=== PATIENT | female | born 1945 | race Caucasian/White ===

== ENCOUNTER 2016-04-12 10:44 | Day surgery (SDC) | payer MEDICARE ==
[2016-04-07 13:17] VITALS: BMI 22.9
[~2016-04-12 10:44] MED LIST: DEXAMETHASONE SOD PHOSPHATE 10 MG/ML 1 ML VIAL IV ONE; HYDROmorphone 1 MG/ML 1 ML SYRINGE IVP PRN; LACTATED RINGERS 1,000 ML IV SCH; ONDANSETRON 4 MG/2 ML VIAL IVP ONE
[2016-04-12] MEDS ORDERED: LIDOCAINE 1% 20 ML VIAL (10MG/ML) FOR IV START SQ ONE (11:50)
[2016-04-12 11:57] VITALS: RESP 16; TEMP 98.3
[2016-04-12] MEDS: CYCLOPENTOLATE 1% OPHTH SOLN 2 ML BTL OP ONE ×3 (11:57→12:17)
[2016-04-12] MEDS: FLURBIPROFEN 0.03% OPHTH DROPS 2.5 ML BTL OP ONE ×3 (12:01→12:18)
[2016-04-12] MEDS: PHENYLEPHRINE 10% OPHTH DROPS 5 ML BTL OP ONE ×3 (12:06→12:21)
[2016-04-12] MEDS ORDERED: fentaNYL (PF) 50 MCG/ML 2 ML AMP ONE (12:41)
[2016-04-12] MEDS ORDERED: PROPOFOL 10 MG/ML 20 ML VIAL IV ONE (12:41)
[2016-04-12] MEDS ORDERED: MIDAZOLAM 2 MG/2 ML VIAL ONE (12:41)
[2016-04-12] MEDS ORDERED: BALANCED SALT IRRIG SOLN COMB2 15 ML IRRIG.SOLN INTRAOCULA ONE (12:47)
[2016-04-12] MEDS ORDERED: HYALURONATE SODIUM INTRAOCULAR 1 EACH SYRINGE (10MG/ML) INTRAOCULA ONE (12:47)
[2016-04-12] MEDS ORDERED: EPINEPHrine (PF) 0.5 ML in BALANCED SALT IRRIG SOLN COMB2 500 ML IRRIGATION ONE (12:47)
--- NOTE | 2016-04-12 13:02 | P.OP ---
Date of Procedure: 04/12/16 Procedure(s) Performed: PREOPERATIVE DIAGNOSIS: Cataract, left eye eye. POSTOPERATIVE DIAGNOSIS: Cataract, left eye. OPERATION: Phacoemulsification cataract, left eye. DESCRIPTION OF PROCEDURE: The patient was taken to the preoperative holding area. Intravenous Propofol was given so as to bring about adequate sedation. The following mixture was given for local anesthesia: 5 mL of 2% lidocaine, 5 mL of 0.75% Marcaine, and 1 mL of Wydase. Approximately 4 mL was injected in the retrobulbar space of the surgical eye. Additional 1 mL was then directed to the temporal area of the surgical eye. This was performed to allow adequate neurological block of the facial muscles. The patient was revived and then taken into the operative room. The patient was prepped and draped in the usual sterile manner for the operative eye. A lid speculum was put into position. The conjunctiva was resected back from the limbus in the 12 o'clock position. Bleeding was controlled with electrocautery. A #69 blade was then used and a half-thickness scleral incision approximately 1-mm posterior to the limbus was made on bare sclera. This was shelved in the clear cornea using a crescent knife. Next a 15-degree blade was used to make a stab incision at the 3 o' clock position at the corneolimbal interface. Keratome blade was then used and the superior wound was extended into the anterior chamber. Viscoelastic was injected into the anterior chamber and to maintain its form. Next, a cystotome was used and a continuous anterior capsulotomy was made without difficulty. Hydrodissection using a blunt cannula and BSS was performed. Phaco probe was then employed and a groove extending from 12 to 6 o'clock in the lens was created. A Ricky wand was used through the stab incision so as to perform a divide and conquer technique. Next an irrigation aspiration probe was utilized and any residual cortex was removed from the eye. Again, viscoelastic was injected into the anterior chamber. An Ze posterior chamber lens implant was placed in the cartridge and injected into the anterior chamber without difficulty. The Sinskey hook was utilized to spin the lens into position and this was again performed without any difficulty. The irrigation and aspiration probe was again employed and any residual viscoelastic was removed from the eye. Then BSS was injected into the limbal stab incision and the anterior chamber re-inflated. The conjunctiva was reapproximated using electrocautery. One drop of 0.25% Timoptic was placed over the corneal along with TobraDex ophthalmic ointment. Two sterile patches and a Sultana eye shield were taped into position. The patient was transported to the recovery room in stable condition. Pathology: none sent Condition: stable Disposition: same day
[2016-04-12 13:32] VITALS: BP 115/58; PULSE 77
[2016-04-12] MEDS ORDERED: GENTAMICIN/PREDNISOL AC OPHTH OINT 3.5GM OPHTHALMIC ONE (23:00)
[2016-04-12] MEDS ORDERED: BUPIVACAINE (PF) 0.75% 5 ML, LIDOCAINE 4% (PF) 5 ML, HYALURONIDASE, HUMAN RECOMB 150 UNIT MISCELLANE ONE ×3 (23:00)
[2016-04-12] MEDS ORDERED: TIMOLOL 0.5% OPHTH SOLN (PF) 0.2 ML DROPERETTE OP ONE (23:00)
== END 2016-04-12 13:44 | disposition home or self-care (01) ==
LOC: OR 10:44
PROVIDERS: ATTEND Ophthalmology
DX: H26.9 Unspecified cataract (principal); E07.9 Disorder of thyroid, unspecified; K21.9 Gastro-esophageal reflux disease without esophagitis; B19.20 Unspecified viral hepatitis C without hepatic coma; Z79.899 Other long term (current) drug therapy; Z88.5 Allergy status to narcotic agent; Z88.2 Allergy status to sulfonamides
CPT/HCPCS: 66984; V2632; J2001; J2250; J3470; J0171; J3010; J2704; 99152; 99153

== ENCOUNTER 2016-06-07 10:17 | Day surgery (SDC) | payer MEDICARE ==
[2016-06-01 16:01] VITALS: BMI 24.4
[~2016-06-07 10:17] MED LIST changes: -DEXAMETHASONE SOD PHOSPHATE 10 MG/ML 1 ML VIAL IV ONE; -HYDROmorphone 1 MG/ML 1 ML SYRINGE IVP PRN; -ONDANSETRON 4 MG/2 ML VIAL IVP ONE
[2016-06-07] MEDS: CYCLOPENTOLATE 1% OPHTH SOLN 2 ML BTL OP ONE ×3 (10:47→11:05)
[2016-06-07 10:49] VITALS: RESP 16; TEMP 97.7
[2016-06-07] MEDS: FLURBIPROFEN 0.03% OPHTH DROPS 2.5 ML BTL OP ONE ×3 (10:49→11:07)
[2016-06-07] MEDS: PHENYLEPHRINE 10% OPHTH DROPS 5 ML BTL OP ONE ×2 (10:51→11:03)
[2016-06-07] MEDS ORDERED: LIDOCAINE 1% 20 ML VIAL (10MG/ML) FOR IV START INTRADERMA ONE (11:06)
[2016-06-07] MEDS ORDERED: HYALURONATE SODIUM INTRAOCULAR 1 EACH SYRINGE (10MG/ML) INTRAOCULA ONE (11:31)
[2016-06-07] MEDS ORDERED: BALANCED SALT IRRIG SOLN COMB2 15 ML IRRIG.SOLN INTRAOCULA ONE (11:31)
[2016-06-07] MEDS ORDERED: PROPOFOL 10 MG/ML 20 ML VIAL IV ONE (11:33)
[2016-06-07] MEDS ORDERED: EPINEPHrine (PF) 0.5 ML in BALANCED SALT IRRIG SOLN COMB2 500 ML IRRIGATION ONE (11:45)
--- NOTE | 2016-06-07 11:58 | P.OP ---
Date of Procedure: 06/07/16 Procedure(s) Performed: PREOPERATIVE DIAGNOSIS: Cataract, right eye. POSTOPERATIVE DIAGNOSIS: Cataract, right eye. OPERATION: Phacoemulsification cataract, right eye. DESCRIPTION OF PROCEDURE: The patient was taken to the preoperative holding area. Intravenous Propofol was given so as to bring about adequate sedation. The following mixture was given for local anesthesia: 5 mL of 2% lidocaine, 5 mL of 0.75% Marcaine, and 1 mL of Wydase. Approximately 4 mL was injected in the retrobulbar space of the surgical eye. Additional 1 mL was then directed to the temporal area of the surgical eye. This was performed to allow adequate neurological block of the facial muscles. The patient was revived and then taken into the operative room. The patient was prepped and draped in the usual sterile manner for the operative eye. A lid speculum was put into position. The conjunctiva was resected back from the limbus in the 12 o'clock position. Bleeding was controlled with electrocautery. A #69 blade was then used and a half-thickness scleral incision approximately 1-mm posterior to the limbus was made on bare sclera. This was shelved in the clear cornea using a crescent knife. Next a 15-degree blade was used to make a stab incision at the 3 o' clock position at the corneolimbal interface. Keratome blade was then used and the superior wound was extended into the anterior chamber. Viscoelastic was injected into the anterior chamber and to maintain its form. Next, a cystotome was used and a continuous anterior capsulotomy was made without difficulty. Hydrodissection using a blunt cannula and BSS was performed. Phaco probe was then employed and a groove extending from 12 to 6 o'clock in the lens was created. A Ricky wand was used through the stab incision so as to perform a divide and conquer technique. Next an irrigation aspiration probe was utilized and any residual cortex was removed from the eye. Again, viscoelastic was injected into the anterior chamber. An Ze posterior chamber lens implant was placed in the cartridge and injected into the anterior chamber without difficulty. The SinFlextripey hook was utilized to spin the lens into position and this was again performed without any difficulty. The irrigation and aspiration probe was again employed and any residual viscoelastic was removed from the eye. Then BSS was injected into the limbal stab incision and the anterior chamber re-inflated. The conjunctiva was reapproximated using electrocautery. One drop of 0.25% Timoptic was placed over the corneal along with TobraDex ophthalmic ointment. Two sterile patches and a Sultana eye shield were taped into position. The patient was transported to the recovery room in stable condition. Pathology: none sent Condition: stable Disposition: same day
[2016-06-07 12:12] VITALS: BP 125/79; PULSE 66
[2016-06-07] MEDS ORDERED: TIMOLOL 0.5% OPHTH SOLN (PF) 0.2 ML DROPERETTE OP ONE (23:00)
[2016-06-07] MEDS ORDERED: GENTAMICIN/PREDNISOL AC OPHTH OINT 3.5GM OPHTHALMIC ONE (23:00)
[2016-06-07] MEDS ORDERED: BUPIVACAINE (PF) 0.75% 5 ML, LIDOCAINE 4% (PF) 5 ML, HYALURONIDASE, HUMAN RECOMB 150 UNIT MISCELLANE ONE ×3 (23:00)
== END 2016-06-07 12:23 | disposition home or self-care (01) ==
LOC: OR 10:17
PROVIDERS: ATTEND Ophthalmology
DX: H25.11 Age-related nuclear cataract, right eye (principal); M19.90 Unspecified osteoarthritis, unspecified site; E07.9 Disorder of thyroid, unspecified; K21.9 Gastro-esophageal reflux disease without esophagitis; Z88.5 Allergy status to narcotic agent; Z88.2 Allergy status to sulfonamides; Z79.899 Other long term (current) drug therapy
CPT/HCPCS: 66984; V2632; J2001; J3470; J0171; J2704

== ENCOUNTER → 2016-12-20 | Outpatient (CLI) | payer MEDICARE ==
--- NOTE | 2016-12-20 09:09 | BD ---
EXAMINATION TYPE: MG DEXA axial skeleton. DATE OF EXAM: 12/20/2016 COMPARISON: 2002 CLINICAL HISTORY: disorder of bone Height: 5'4 Weight: 146 FRAX RISK QUESTIONS: Alcohol (3 or more units per day): no Family History (Parent hip fracture): no Glucocorticoids (More than 3mos): no (Ex: prednisone, prednisolone, methylprednisolone, dexamethasone, and hydrocortisone). History of Fracture in Adulthood: yes Secondary Osteoporosis: 1. Type 1 Diabetes: no 2. Hyperthyroidism: no 3. Menopause before 45: no 4. Malnutrition: no 5. Chronic liver disease: yes hepatitis c Rheumatoid Arthritis: no Current Tobacco Use: no RISK FACTORS HISTORY OF: History of Wrist Fracture: rt When: 2009 Postmenopausal woman: MEDICATIONS: Thyroid Medications: Which medication: Levothyroxine How Lon years Additional Medications: arthritis ,acid reflux Additional History: gastric bypass 2006 EXAM MEASUREMENTS: Bone mineral densitometry was performed using the [employer] System. Bone mineral density as measured about the Lumbar spine is: ----- L1-L4(G/cm2): 0.778 T Score Values are as follows: ----- L2: -3.8 ----- L3: -3.4 ----- L4: -3.0 ----- L1-L4: -3.4 Bone mineral density has: Decreased -11.9% since study of: 02/10/2003 Bone mineral density about the R hip (g/cm2): 0.704 Bone mineral density about the L hip (g/cm2): 0.690 T Score values are as follows: -----R Neck: -2.4 -----L Neck: -2.5 -----R Total: -2.2 -----L Total: -2.3 Bone mineral density has: Increased 0.6% since study of: 02/10/2003 IMPRESSION: Osteoporosis (T Score less than -2.5) as noted by T Score values at theL1-L4 There is increased fracture risk and therapy is usually indicated based on age. Re-Screen 1-2 years. NOTE: T-SCORE=SD OF THE YOUNG ADULT MEAN.
--- NOTE | 2016-12-21 13:00 | MM ---
Reason for exam: screening (asymptomatic). Last mammogram was performed 6 years and 6 months ago. History: Patient is postmenopausal. Family history of breast cancer in mother at age 70. Benign stereotactic core biopsy of the left breast, March 10, 2000. Implant Removal of both breasts, 1994. Reduction of the left breast. Reduction of the right breast. Core biopsy of the left breast. 2 excisional biopsies of the left breast. Excisional biopsy of the right breast. Took hormonal contraceptives for 1 year 6 months. Physical Findings: A clinical breast exam by your physician is recommended on an annual basis and results should be correlated with mammographic findings. MG 3D Screening Mammo W/Cad Bilateral CC and MLO view(s) were taken. Prior study comparison: July 01, 2010, CAD bilateral diagnostic mammogram. July 10, 2008, bilateral diagnostic digital mammog. The breast tissue is heterogeneously dense. This may lower the sensitivity of mammography. No suspicious abnormality. No significant changes when compared with prior studies. ASSESSMENT: Negative, BI-RAD 1 RECOMMENDATION: Routine screening mammogram of both breasts in 1 year.
== END | disposition home or self-care (01) ==
LOC: RADMAMWWP 07:01
PROVIDERS: ATTEND Family Medicine
DX: Z12.31 Encounter for screening mammogram for malignant neoplasm of breast (principal); M81.0 Age-related osteoporosis without current pathological fracture
CPT/HCPCS: 77080; 77063; G0202

== ENCOUNTER → 2017-01-10 | Outpatient (CLI) | payer MEDICARE ==
[2017-01-10 10:56] LABS: Anisocytosis Slight; Basophils % (A) 1 %; CH 19.7; CHCM 28.1; Eosinophils # (A) 0.1 k/uL (0-0.7); Eosinophils % (A) 2 %; HCT 31.6 % (34.0-46.0); HDW 3.42; Hypochromasia Marked; Luc % (Auto) 2; Lymphocytes # (A) 1.9 k/uL (1.0-4.8); Lymphocytes % (A) 43 %; MCH 20.1 pg (25.0-35.0); MCHC 28.4 g/dL (31.0-37.0); MCV 70.6 fL (80.0-100.0); Mean Platelet Volume 7.4; Microcytosis Marked; Monocytes # (A) 0.4 k/uL (0-1.0); Monocytes % (A) 8 %; Neutrophils % (A) 44 %; Poikilocytosis Slight; RBC 4.47 m/uL (3.80-5.40); RDW 19.6 % (11.5-15.5); WBC 4.5 k/uL (3.8-10.6)
[2017-01-10 11:49] LABS: Bilirubin, Delta 0.2 mg/dL (0.0-0.2); Total Bilirubin 0.2 mg/dL (0.2-1.3); Total Protein 6.7 g/dL (6.3-8.2)
[2017-01-11 15:33] LABS: Hepatits C Virus RNA, Quant <12 IU/mL (<12); LOG HCV IU/mL <1.08 (<1.08)
== END | disposition home or self-care (01) ==
LOC: LABWHC1 09:50
PROVIDERS: ATTEND Physician Assistant
DX: B18.2 Chronic viral hepatitis C (principal)
CPT/HCPCS: 36415; 80076; 85025; 87522

== ENCOUNTER → 2017-01-17 | Outpatient (CLI) | payer MEDICARE ==
[2017-01-17 10:40] LABS: Anisocytosis Moderate; Basophils # (A) 0.1 k/uL (0-0.2); Basophils % (A) 1 %; CH 19.9; Eosinophils # (A) 0.1 k/uL (0-0.7); Eosinophils % (A) 1 %; HCT 31.6 % (34.0-46.0); HDW 3.48; HGB 9.2 gm/dL (11.4-16.0); Hypochromasia Marked; Luc # (Auto) 0.12; Luc % (Auto) 2; Lymphocytes # (A) 2.2 k/uL (1.0-4.8); Lymphocytes % (A) 37 %; MCH 20.8 pg (25.0-35.0); MCV 71.8 fL (80.0-100.0); Mean Platelet Volume 7.3; Microcytosis Marked; Monocytes # (A) 0.4 k/uL (0-1.0); Monocytes % (A) 7 %; Neutrophils % (A) 51 %; Poikilocytosis Slight; RDW 20.8 % (11.5-15.5); WBC 5.8 k/uL (3.8-10.6); WBC (Perox) 5.98
[2017-01-17 17:42] LABS: Iron Saturation 5.83 (12.00-45.00)
== END | disposition home or self-care (01) ==
LOC: LABWHC1 10:11
PROVIDERS: ATTEND Physician Assistant
DX: D64.9 Anemia, unspecified (principal)
CPT/HCPCS: 36415; 82728; 83540; 83550; 85025

== ENCOUNTER → 2017-03-16 | Outpatient (CLI) | payer MEDICARE ==
[2017-03-16 11:09] LABS: ALT 45 U/L (9-52); AST 35 U/L (14-36); Albumin 4.2 g/dL (3.5-5.0); Alkaline Phosphatase 147 U/L (38-126); Anion Gap 14 mmol/L; Blood Urea Nitrogen 15 mg/dL (7-17); Calcium 8.9 mg/dL (8.4-10.2); Carbon Dioxide 17 mmol/L (22-30); Chloride 113 mmol/L (98-107); Glucose 86 mg/dL (74-99); Potassium 3.8 mmol/L (3.5-5.1); Sodium 144 mmol/L (137-145); Total Bilirubin 0.3 mg/dL (0.2-1.3); Total Protein 7.3 g/dL (6.3-8.2)
[2017-03-16 11:12] LABS: Anisocytosis Moderate; Basophils % (A) 1 %; Eosinophils # (A) 0.1 k/uL (0-0.7); Eosinophils % (A) 2 %; HCT 38.7 % (34.0-46.0); HGB 11.8 gm/dL (11.4-16.0); Hypochromasia Moderate; Lymphocytes % (A) 41 %; MCH 25.7 pg (25.0-35.0); MCHC 30.4 g/dL (31.0-37.0); Mean Platelet Volume 7.7; Microcytosis Slight; Monocytes # (A) 0.4 k/uL (0-1.0); Monocytes % (A) 7 %; Neutrophils # (A) 2.3 k/uL (1.3-7.7); Neutrophils % (A) 47 %; Platelet Count 181 k/uL (150-450); RBC 4.58 m/uL (3.80-5.40); RDW 21.6 % (11.5-15.5); WBC 4.9 k/uL (3.8-10.6)
[2017-03-16 11:26] LABS: MCV 84.5 fL (80.0-100.0)
[2017-03-17 16:32] LABS: Hepatits C Virus RNA Not detected (Not detected); Hepatits C Virus RNA, Quant <12 IU/mL (<12); LOG HCV IU/mL <1.08 (<1.08)
== END | disposition home or self-care (01) ==
LOC: LABWHC1 10:17
PROVIDERS: ATTEND Internal Medicine Gastroenterology
DX: B18.2 Chronic viral hepatitis C (principal)
CPT/HCPCS: 36415; 80053; 85025; 87522

== ENCOUNTER → 2017-04-17 | Outpatient (CLI) | payer MEDICARE ==
[2017-04-17 16:00] LABS: ALT 34 U/L (9-52); AST 26 U/L (14-36); Albumin 4.2 g/dL (3.5-5.0); Alkaline Phosphatase 161 U/L (38-126); Anion Gap 10 mmol/L; Anisocytosis Slight; Basophils % (A) 1 %; Blood Urea Nitrogen 16 mg/dL (7-17); Calcium 8.4 mg/dL (8.4-10.2); Carbon Dioxide 23 mmol/L (22-30); Chloride 107 mmol/L (98-107); Eosinophils # (A) 0.1 k/uL (0-0.7); Eosinophils % (A) 3 %; Glucose 87 mg/dL (74-99); HGB 12.3 gm/dL (11.4-16.0); Hypochromasia Slight; Lymphocytes # (A) 2.2 k/uL (1.0-4.8); Lymphocytes % (A) 39 %; MCH 27.2 pg (25.0-35.0); MCHC 30.8 g/dL (31.0-37.0); MCV 88.4 fL (80.0-100.0); Mean Platelet Volume 8.3; Monocytes # (A) 0.4 k/uL (0-1.0); Monocytes % (A) 7 %; Neutrophils # (A) 2.8 k/uL (1.3-7.7); Neutrophils % (A) 49 %; Platelet Count 157 k/uL (150-450); Potassium 4.1 mmol/L (3.5-5.1); RBC 4.53 m/uL (3.80-5.40); RDW 17.2 % (11.5-15.5); Sodium 140 mmol/L (137-145); Total Bilirubin 0.3 mg/dL (0.2-1.3); Total Protein 7.3 g/dL (6.3-8.2); WBC 5.7 k/uL (3.8-10.6)
[2017-04-18 14:02] LABS: Hepatits C Virus RNA Not detected (Not detected); Hepatits C Virus RNA, Quant <12 IU/mL (<12); LOG HCV IU/mL <1.08 (<1.08)
== END | disposition home or self-care (01) ==
LOC: LABWHC1 15:14
PROVIDERS: ATTEND Internal Medicine Gastroenterology
DX: B18.2 Chronic viral hepatitis C (principal)
CPT/HCPCS: 36415; 80053; 85025; 87522

== ENCOUNTER → 2017-06-07 | Outpatient (CLI) | payer MEDICARE ==
[2017-06-07 09:40] LABS: Basophils % (A) 1 %; Eosinophils # (A) 0.2 k/uL (0-0.7); Eosinophils % (A) 3 %; HCT 39.2 % (34.0-46.0); HGB 12.3 gm/dL (11.4-16.0); Lymphocytes # (A) 1.9 k/uL (1.0-4.8); Lymphocytes % (A) 33 %; MCH 28.5 pg (25.0-35.0); MCHC 31.2 g/dL (31.0-37.0); MCV 91.1 fL (80.0-100.0); Mean Platelet Volume 7.9; Monocytes # (A) 0.3 k/uL (0-1.0); Monocytes % (A) 6 %; Neutrophils # (A) 3.2 k/uL (1.3-7.7); Neutrophils % (A) 56 %; Platelet Count 176 k/uL (150-450); RBC 4.31 m/uL (3.80-5.40); RDW 14.6 % (11.5-15.5); Reticulocyte % 2.1 % (0.5-2.0); WBC 5.7 k/uL (3.8-10.6)
[2017-06-07 15:48] LABS: ALT 39 U/L (9-52); AST 28 U/L (14-36); Albumin 3.6 g/dL (3.5-5.0); Alkaline Phosphatase 149 U/L (38-126); Anion Gap 13 mmol/L; Blood Urea Nitrogen 17 mg/dL (7-17); Calcium 8.2 mg/dL (8.4-10.2); Carbon Dioxide 21 mmol/L (22-30); Chloride 109 mmol/L (98-107); Cholesterol 84 mg/dL (<200); Creatine Kinase 43 U/L (30-135); Glucose 84 mg/dL (74-99); HDL Cholesterol 39 mg/dL (40-60); LDL Cholesterol,Calculated 25 mg/dL (0-99); Magnesium 2.1 mg/dL (1.6-2.3); Potassium 3.9 mmol/L (3.5-5.1); Sodium 143 mmol/L (137-145); Total Bilirubin 0.3 mg/dL (0.2-1.3); Total Protein 6.5 g/dL (6.3-8.2); Triglycerides 99 mg/dL (<150)
[2017-06-07 16:05] LABS: T4, Free (Free Thyroxine) 1.75 ng/dL (0.78-2.19)
[2017-06-07 19:30] LABS: Hemoglobin A1C 4.6 % (4.0-6.0)
[2017-06-08 11:46] LABS: Haptoglobin 77.7 mg/dL (31.2-198.0)
[2017-06-09 06:54] LABS: Vitamin B1 50 ug/L (38-122)
== END | disposition home or self-care (01) ==
LOC: LABWHC1 08:37
PROVIDERS: ATTEND Family Medicine
DX: D50.9 Iron deficiency anemia, unspecified (principal); E78.5 Hyperlipidemia, unspecified; B18.2 Chronic viral hepatitis C; E03.9 Hypothyroidism, unspecified; I95.1 Orthostatic hypotension
CPT/HCPCS: 36415; 80053; 80061; 82533; 82550; 82607; 82728; 82747; 83010; 83036; 83735; 84425; 84439; 84443; 85025; 85045

== ENCOUNTER → 2017-08-28 | Outpatient (CLI) | payer MEDICARE ==
[2017-08-28 14:09] LABS: Basophils % (A) 0 %; Eosinophils # (A) 0.1 k/uL (0-0.7); Eosinophils % (A) 1 %; HCT 37.4 % (34.0-46.0); HGB 12.2 gm/dL (11.4-16.0); Lymphocytes # (A) 2.2 k/uL (1.0-4.8); Lymphocytes % (A) 40 %; MCH 29.7 pg (25.0-35.0); MCHC 32.6 g/dL (31.0-37.0); MCV 91.1 fL (80.0-100.0); Mean Platelet Volume 7.4; Monocytes # (A) 0.3 k/uL (0-1.0); Monocytes % (A) 6 %; Neutrophils # (A) 2.7 k/uL (1.3-7.7); Neutrophils % (A) 50 %; Platelet Count 199 k/uL (150-450); RBC 4.11 m/uL (3.80-5.40); RDW 13.6 % (11.5-15.5); WBC 5.5 k/uL (3.8-10.6)
[2017-08-28 14:32] LABS: ALT 50 U/L (9-52); AST 36 U/L (14-36); Albumin 3.8 g/dL (3.5-5.0); Alkaline Phosphatase 155 U/L (38-126); Anion Gap 13 mmol/L; Blood Urea Nitrogen 13 mg/dL (7-17); Calcium 8.2 mg/dL (8.4-10.2); Carbon Dioxide 18 mmol/L (22-30); Chloride 108 mmol/L (98-107); Glucose 85 mg/dL (74-99); Potassium 4.4 mmol/L (3.5-5.1); Sodium 139 mmol/L (137-145); Total Bilirubin 0.4 mg/dL (0.2-1.3); Total Protein 6.6 g/dL (6.3-8.2)
[2017-08-28 19:50] LABS: Iron Saturation 25.56 (12.00-45.00)
== END | disposition home or self-care (01) ==
LOC: LABWHC1 13:13
PROVIDERS: ATTEND Internal Medicine Gastroenterology
DX: E78.5 Hyperlipidemia, unspecified (principal); B18.2 Chronic viral hepatitis C; D50.9 Iron deficiency anemia, unspecified; E03.9 Hypothyroidism, unspecified
CPT/HCPCS: 36415; 80053; 82728; 83540; 83550; 83735; 84134; 84443; 85025; 87522

== ENCOUNTER → 2017-11-07 | Outpatient (CLI) | payer MEDICARE ==
[2017-11-07 09:03] LABS: Cholesterol 85 mg/dL (<200); HDL Cholesterol 42 mg/dL (40-60); LDL Cholesterol,Calculated 23 mg/dL (0-99); Triglycerides 101 mg/dL (<150)
[2017-11-07 09:15] LABS: Appearance,Urine Clear (Clear); Bilirubin,Urine Negative (Negative); Blood,Urine Negative (Negative); Color,Urine Yellow; Glucose,Urine (UA) Negative (Negative); Ketones,Urine Negative (Negative); Leukocyte Esterase,Urine Negative (Negative); Nitrite,Urine Negative (Negative); PH, Urine 6.5 (5.0-8.0); Protein,Urine Negative (Negative); Specific Gravity,Urine 1.019 (1.001-1.035); Urobilinogen,Urine <2.0 mg/dL (<2.0)
== END ==
LOC: LABWHC1 08:10
PROVIDERS: ATTEND Family Medicine
DX: E78.5 Hyperlipidemia, unspecified (principal); E03.9 Hypothyroidism, unspecified; D50.9 Iron deficiency anemia, unspecified; B18.2 Chronic viral hepatitis C
CPT/HCPCS: 36415; 80061; 81003

== ENCOUNTER → 2018-01-09 | Outpatient (CLI) | payer MEDICARE ==
[2018-01-09 08:40] LABS: Basophils % (A) 1 %; Eosinophils # (A) 0.1 k/uL (0-0.7); Eosinophils % (A) 1 %; HCT 35.4 % (34.0-46.0); Hypochromasia Slight; Lymphocytes # (A) 1.5 k/uL (1.0-4.8); Lymphocytes % (A) 33 %; MCH 27.2 pg (25.0-35.0); MCHC 31.1 g/dL (31.0-37.0); MCV 87.5 fL (80.0-100.0); Mean Platelet Volume 7.5; Monocytes # (A) 0.3 k/uL (0-1.0); Monocytes % (A) 6 %; Neutrophils # (A) 2.6 k/uL (1.3-7.7); Neutrophils % (A) 57 %; Platelet Count 167 k/uL (150-450); RBC 4.05 m/uL (3.80-5.40); RDW 13.7 % (11.5-15.5); WBC 4.6 k/uL (3.8-10.6)
[2018-01-09 19:12] LABS: Iron Saturation 10.37 (12.00-45.00)
[2018-01-09 19:26] LABS: T4, Free (Free Thyroxine) 1.5 ng/dL (0.80-1.80)
[2018-01-09 19:29] LABS: Albumin 4.1 g/dL (3.80-4.90); Albumin/Globulin Ratio 1.95 (1.20-2.10); Anion Gap 6.8 mmol/L (4.00-12.00); Calcium 8.1 mg/dL (8.7-10.3); Carbon Dioxide 19.2 mmol/L (21.6-31.8); Globulin 2.1 g/dL (2.1-3.7); Magnesium 1.8 mg/dL (1.5-2.4); Potassium 4.1 mmol/L (3.5-5.5); Total Bilirubin 0.4 mg/dL (0.3-1.2); Total Protein 6.2 g/dL (6.2-8.2)
[2018-01-09 21:23] LABS: Hemoglobin A1C 4.8 % (4.0-6.0)
[2018-01-10 12:32] LABS: Zinc, Serum 70 ug/dL (60-130)
== END | disposition home or self-care (01) ==
LOC: LABWHC1 07:44
PROVIDERS: ATTEND Family Medicine
DX: D50.9 Iron deficiency anemia, unspecified (principal); E03.9 Hypothyroidism, unspecified; B18.2 Chronic viral hepatitis C; Z98.84 Bariatric surgery status
CPT/HCPCS: 36415; 80053; 82533; 82607; 83036; 83540; 83550; 83735; 84134; 84439; 84443; 84590; 84630; 85025

== ENCOUNTER → 2018-05-15 | Outpatient (CLI) | payer MEDICARE ==
[2018-05-15 09:23] LABS: Basophils % (A) 0 %; Eosinophils # (A) 0.1 k/uL (0-0.7); Eosinophils % (A) 2 %; HCT 37.6 % (34.0-46.0); HGB 11.5 gm/dL (11.4-16.0); Hypochromasia Marked; Lymphocytes # (A) 1.8 k/uL (1.0-4.8); Lymphocytes % (A) 38 %; MCH 25.6 pg (25.0-35.0); MCHC 30.5 g/dL (31.0-37.0); MCV 83.8 fL (80.0-100.0); Monocytes # (A) 0.4 k/uL (0-1.0); Monocytes % (A) 8 %; Neutrophils # (A) 2.3 k/uL (1.3-7.7); Neutrophils % (A) 50 %; Platelet Count 201 k/uL (150-450); RBC 4.49 m/uL (3.80-5.40); RDW 15.4 % (11.5-15.5); WBC 4.6 k/uL (3.8-10.6)
[2018-05-15 16:32] LABS: ALT 43 U/L (8-44); AST 35 U/L (13-35); Albumin/Globulin Ratio 2.05 (1.60-3.17); Alkaline Phosphatase 182 U/L (41-126); Carbon Dioxide 24.6 mmol/L (21.6-31.8); Chloride 105 mmol/L (96-109); Cholesterol 108 mg/dL (0-200); Globulin 1.9 g/dL (1.6-3.3); Glucose 81 mg/dL (70-110); Sodium 138 mmol/L (135-145); Total Bilirubin 0.4 mg/dL (0.2-1.2); Total Protein 5.8 g/dL (6.2-8.2); Triglycerides <50.0 mg/dL (0.0-149.0); VLDL Calculation 9.98 mg/dL (5.00-40.00)
[2018-05-16 10:30] LABS: Zinc, Serum 67 ug/dL (60-130)
== END | disposition home or self-care (01) ==
LOC: LABWHC1 08:23
PROVIDERS: ATTEND Family Medicine
DX: E78.5 Hyperlipidemia, unspecified (principal); E03.9 Hypothyroidism, unspecified; E55.9 Vitamin D deficiency, unspecified; H65.23 Chronic serous otitis media, bilateral; Z98.84 Bariatric surgery status
CPT/HCPCS: 36415; 80053; 80061; 82607; 84439; 84443; 84590; 84630; 85025

== ENCOUNTER → 2019-03-01 | Outpatient (CLI) | payer MEDICARE ==
[2019-03-01 09:26] LABS: Basophils % (A) 1 %; Eosinophils # (A) 0.1 k/uL (0-0.7); Eosinophils % (A) 2 %; HCT 37.3 % (34.0-46.0); HGB 12.1 gm/dL (11.4-16.0); Lymphocytes # (A) 1.3 k/uL (1.0-4.8); Lymphocytes % (A) 39 %; MCH 32.8 pg (25.0-35.0); MCHC 32.4 g/dL (31.0-37.0); Mean Platelet Volume 8.4; Monocytes # (A) 0.2 k/uL (0-1.0); Monocytes % (A) 6 %; Neutrophils # (A) 1.7 k/uL (1.3-7.7); Neutrophils % (A) 50 %; Platelet Count 143 k/uL (150-450); RDW 13.7 % (11.5-15.5); WBC 3.5 k/uL (3.8-10.6)
[2019-03-01 18:46] LABS: Albumin 3.5 g/dL (3.80-4.90); Albumin/Globulin Ratio 1.94 (1.60-3.17); Anion Gap 6.6 mmol/L (4.00-12.00); Calcium 7.4 mg/dL (8.7-10.3); Carbon Dioxide 21.4 mmol/L (21.6-31.8); Chol/HDL Ratio 1.6; Globulin 1.8 g/dL (1.6-3.3); LDL Cholesterol,Calculated 23.8 mg/dL (0.0-131.0); Potassium 3.6 mmol/L (3.5-5.5); T4, Free (Free Thyroxine) 0.9 ng/dL (0.80-1.80); Total Bilirubin 0.3 mg/dL (0.2-1.2); Total Protein 5.3 g/dL (6.2-8.2); VLDL Calculation 12.2 mg/dL (5.00-40.00)
== END | disposition home or self-care (01) ==
LOC: LABWHC1 08:49
PROVIDERS: ATTEND Family Medicine
DX: E03.9 Hypothyroidism, unspecified (principal); E78.5 Hyperlipidemia, unspecified; M06.4 Inflammatory polyarthropathy
CPT/HCPCS: 36415; 80053; 80061; 82550; 83036; 84439; 84443; 85025

== ENCOUNTER → 2019-03-06 | Outpatient (CLI) | payer MEDICARE ==
--- NOTE | 2019-03-07 07:38 | BD ---
EXAMINATION TYPE: Axial Bone Density DATE OF EXAM: 03/06/2019 COMPARISON: NONE CLINICAL HISTORY: M [age] Height: 5 FT 2 1/2 IN Weight: 138 FRAX RISK QUESTIONS: Alcohol (3 or more units per day): NO Family History (Parent hip fracture): NO Glucocorticoids (More than 3mos): NO (Ex: prednisone, prednisolone, methylprednisolone, dexamethasone, and hydrocortisone). History of Fracture in Adulthood: YES Secondary Osteoporosis: 1. Type 1 Diabetes: NO 2. Hyperthyroidism: NO 3. Menopause before 45: NO 4. Malnutrition: NO 5. Chronic liver disease: NO Rheumatoid Arthritis: NO Current Tobacco Use: NO RISK FACTORS HISTORY OF: History of Wrist Fracture: RT CAST ONLY When: 2009 Active: YES Postmenopausal woman: AGE 46 Lost more than 2 inches in height since high school: YES MEDICATIONS: Thyroid Medications: YES Which medication: LEVOTHYROXINE How Long: APPROX 18 YEARS Additional Medications: LEVOTHYROXINE , ACID REFLUX MEDS, VITAMINS, Additional History: GASTRIC BYPASS 2006 EXAM MEASUREMENTS: Bone mineral densitometry was performed using the [employer] System. Bone mineral density as measured about the Lumbar spine is: ----- L1-L4(G/cm2): 0.776 T Score Values are as follows: ----- L2: -3.8 ----- L3: -3.5 ----- L4: -3.3 ----- L1-L4: -3.4 Bone mineral density has: DECREASED -1.3 % since study of: 2016 Bone mineral density about the R hip (g/cm2): 0.710 Bone mineral density about the L hip (g/cm2): 0.730 T Score values are as follows: -----R Neck: -2.4 -----L Neck: -2.2 -----R Total: -2.5 -----L Total: -2.4 Bone mineral density has: DECREASED -4.3 % since study of: 2017 IMPRESSION: Osteoporosis (T Score less than -2.5) with respect to the lumbar spine. There is increased fracture risk and therapy is usually indicated based on age. Re-Screen 1-2 years. NOTE: T-SCORE=SD OF THE YOUNG ADULT MEAN.
== END | disposition home or self-care (01) ==
LOC: RADBDWWP 16:04
PROVIDERS: ATTEND Internal Medicine Rheumatology
DX: M81.0 Age-related osteoporosis without current pathological fracture (principal)
CPT/HCPCS: 77080

== ENCOUNTER → 2019-12-26 | Outpatient (CLI) | payer MEDICARE ==
[2019-12-26 11:24] LABS: Basophils % (A) 1 %; Eosinophils # (A) 0.1 k/uL (0-0.7); Eosinophils % (A) 2 %; HCT 42.9 % (34.0-46.0); HGB 13.4 gm/dL (11.4-16.0); Lymphocytes # (A) 1.7 k/uL (1.0-4.8); Lymphocytes % (A) 40 %; MCH 30.9 pg (25.0-35.0); MCHC 31.2 g/dL (31.0-37.0); MCV 99.1 fL (80.0-100.0); Mean Platelet Volume 7.8; Monocytes # (A) 0.3 k/uL (0-1.0); Monocytes % (A) 7 %; Neutrophils # (A) 2.1 k/uL (1.3-7.7); Neutrophils % (A) 49 %; Platelet Count 159 k/uL (150-450); RBC 4.33 m/uL (3.80-5.40); RDW 12.7 % (11.5-15.5); WBC 4.3 k/uL (3.8-10.6)
[2019-12-26 20:33] LABS: T4, Free (Free Thyroxine) 1.1 ng/dL (0.80-1.80)
[2019-12-26 21:07] LABS: African American GFR (CKD) 102.6 (60.0-200.0); Albumin/Globulin Ratio 1.82 (1.60-3.17); Anion Gap 6.3 mmol/L (4.00-12.00); BUN/Creat Ratio 16.67 Ratio (12.00-20.00); Carbon Dioxide 24.7 mmol/L (21.6-31.8); Chol/HDL Ratio 2.14; Globulin 2.2 g/dL (1.6-3.3); LDL Cholesterol,Calculated 37.8 mg/dL (0.0-131.0); Non-African American GFR(CKD) 88.5 (60.0-200.0); Potassium 3.8 mmol/L (3.5-5.5); Total Bilirubin 0.4 mg/dL (0.2-1.2); Total Protein 6.2 g/dL (6.2-8.2); VLDL Calculation 18.2 mg/dL (5.00-40.00)
== END | disposition home or self-care (01) ==
LOC: LABWHC1 09:09
PROVIDERS: ATTEND Family Medicine
DX: E78.5 Hyperlipidemia, unspecified (principal); M54.14 Radiculopathy, thoracic region; E03.9 Hypothyroidism, unspecified
CPT/HCPCS: 36415; 80053; 80061; 82550; 82607; 84439; 84443; 85025

== ENCOUNTER 2020-01-23 09:20 | Day surgery (SDC) | payer MEDICARE ==
[2020-01-17 18:23] VITALS: BMI 23.3
[2020-01-23 09:58] VITALS: TEMP 97.1
[2020-01-23] MEDS ORDERED: LIDOCAINE 1% (10MG/ML) FOR IV START INTRADERMA ONE (10:00)
[2020-01-23] MEDS ORDERED: LIDOCAINE 1% INJ 10MG/ML (20 ML MDV) ONE (10:37)
[2020-01-23] MEDS ORDERED: PROPOFOL 10 MG/ML 20 ML VIAL IV ONE (10:37)
--- NOTE | 2020-01-23 10:59 | P.PCN ---
Date of Procedure: 01/23/20 Procedure(s) Performed: BRIEF HISTORY: Patient is a 74-year-old pleasant white female scheduled for an elective colonoscopy as a part of evaluation of positive cologuard. PROCEDURE PERFORMED: Colonoscopy with snare polypectomy. PREOPERATIVE DIAGNOSIS: Positive cologuard. IV sedation per Anesthesia. PROCEDURE: After informed consent was obtained, the patient, was brought into the endoscopy unit. IV sedation was administered by Anesthesia under continuous monitoring. Digital rectal examination was normal. Initially the Olympus CF-160 flexible video colonoscope was then inserted in the rectum, gradually advanced into the cecum without any difficulty. Careful examination was performed as the scope was gradually being withdrawn. Ileocecal valve and the appendiceal orifice were visualized and appeared normal. Prep was excellent. Mucosa of the cecum appeared normal. In the ascending colon there was a 3 polyps which measured 5 mm and other one 1 cm polyp which were removed by snare polypectomy. Rest of the, ascending colon, transverse colon, appeared normal. In the descending colon there was another 3 mm polyp removed by snare polypectomy. Rest of the descending colon, sigmoid colon, and rectum appeared normal. Scattered sigmoid diverticulosis. Retroflexion was performed in the rectum and no lesions were seen. The patient tolerated the procedure well. IMPRESSION: 5 mm 2 and 1 cm ascending colon polyp status post polypectomy 3 mm descending colon polyp status post snare polypectomy Scattered sigmoid diverticula RECOMMENDATIONS: Findings of this examination were discussed with the patient as her family. He was advised to follow with the biopsy results. If the biopsy shows an adenoma she can have a repeat colonoscopy in 3 years.
[2020-01-23 11:09] VITALS: PULSE 71; RESP 16
[2020-01-23 11:29] VITALS: BP 131/79
== END 2020-01-23 11:40 | disposition home or self-care (01) ==
LOC: ORWHC2ENDO 09:20
PROVIDERS: ATTEND Internal Medicine Gastroenterology
DX: D12.2 Benign neoplasm of ascending colon (principal); D12.3 Benign neoplasm of transverse colon; K57.30 Diverticulosis of large intestine without perforation or abscess without bleeding; Z79.890 Hormone replacement therapy; Z79.899 Other long term (current) drug therapy; Z88.5 Allergy status to narcotic agent; Z88.2 Allergy status to sulfonamides; K21.9 Gastro-esophageal reflux disease without esophagitis; Z90.49 Acquired absence of other specified parts of digestive tract; Z98.890 Other specified postprocedural states; M35.00 Sjogren syndrome, unspecified; Z97.2 Presence of dental prosthetic device (complete) (partial)
CPT/HCPCS: 88305; 45385; J2001; J2704

== ENCOUNTER → 2020-03-03 | Outpatient (CLI) | payer MEDICARE ==
[2020-03-03 09:00] LABS: Basophils % (A) 0 %; Eosinophils # (A) 0.1 k/uL (0-0.7); Eosinophils % (A) 2 %; HCT 40.1 % (34.0-46.0); HGB 13.2 gm/dL (11.4-16.0); Lymphocytes # (A) 1.5 k/uL (1.0-4.8); Lymphocytes % (A) 35 %; MCH 31.9 pg (25.0-35.0); MCV 96.6 fL (80.0-100.0); Mean Platelet Volume 8.1; Monocytes # (A) 0.3 k/uL (0-1.0); Monocytes % (A) 6 %; Neutrophils # (A) 2.4 k/uL (1.3-7.7); Neutrophils % (A) 56 %; Platelet Count 114 k/uL (150-450); RBC 4.16 m/uL (3.80-5.40); RDW 12.7 % (11.5-15.5); WBC 4.3 k/uL (3.8-10.6)
[2020-03-03 15:04] LABS: African American GFR (CKD) 101.9 (60.0-200.0); Albumin 4.3 g/dL (3.80-4.90); Albumin/Globulin Ratio 2.39 (1.60-3.17); Anion Gap 4.1 mmol/L (4.00-12.00); BUN/Creat Ratio 21.67 Ratio (12.00-20.00); Calcium 7.9 mg/dL (8.7-10.3); Carbon Dioxide 23.9 mmol/L (21.6-31.8); Globulin 1.8 g/dL (1.6-3.3); Non-African American GFR(CKD) 87.9 (60.0-200.0); Potassium 3.9 mmol/L (3.5-5.5); Total Bilirubin 0.4 mg/dL (0.3-1.2); Total Protein 6.1 g/dL (6.2-8.2)
[2020-03-03 17:29] LABS: Hepatitis A Antibody IgM Non-Reactive (Non-Reactive); Hepatitis B Core IgM Non-Reactive (Non-Reactive); Hepatitis B Surface Antigen Non-Reactive (Non-Reactive); Hepatitis C IgG Antibody Reactive (Non-Reactive)
== END | disposition home or self-care (01) ==
LOC: LABWHC1 07:27
PROVIDERS: ATTEND Family Medicine
DX: R74.01 Elevation of levels of liver transaminase levels (principal)
CPT/HCPCS: 36415; 80053; 80074; 85025; 86038

== ENCOUNTER → 2020-03-17 | Outpatient (CLI) | payer MEDICARE ==
[~2020-03-17] MED LIST changes: -LACTATED RINGERS 1,000 ML IV SCH; +REGADENOSON 0.4 MG/5 ML SYRINGE IV ONE
--- NOTE | 2020-03-17 13:00 | NM ---
EXAMINATION TYPE: NM stress lexiscan cardiolite DATE OF EXAM: 03/17/2020 COMPARISON: NONE HISTORY: Precordial chest pain and abnormal EKG TECHNIQUE: After the intravenous administration of 9.1 mCi Tc 99m Sestamibi - Cardiolite resting SPE CT images acquired 45 minutes post injection. The patient received 0.4mg Lexiscan, 25 mCi Tc 99m Sestamibi - Stress images obtained 30 minutes post injection FINDINGS: Review of stress and rest SPECT images demonstrates no distinct perfusion abnormality. Gated analysi s shows normal wall motion with an estimated left ventricular ejection fraction of 76 %. IMPRESSION: No scintigraphic evidence for reversible ischemia.
--- NOTE | 2020-03-17 15:29 | EST ---
EXERCISE STRESS AGE: 75 SEX: Female HT: 5'5" WT: 145 lbs. PROTOCOL: Lexiscan STAGE: N/A DURATION OF EXERCISE: N/A HEART RATE REST: 76 BLOOD PRESSURE REST: 122/78 MAXIMUM HEART RATE ACHIEVED: 108 MAXIMUM BLOOD PRESSURE: 146/70 85% MPHR: 122 100% MPHR: 143 METS: N/A INDICATIONS: Chest pain. CLINICAL INFORMATION: Baseline rhythm is sinus mechanism, rate of 76, normal axis and intervals and normal electrocardiogram. Baseline blood pressure 122/78 mmHg. Patient received an injection of Lexiscan. Electrocardiograph monitoring revealed no evidence of diagnostic ischemic ST deviation. Cardiolite was injected per protocol. CONCLUSION: 1. Nondiagnostic electrocardiograph stress testing. 2. Nuclear images will be reported separately. MMODL / IJN: [id number] /
== END | disposition home or self-care (01) ==
LOC: RADNMMAIN 07:28
PROVIDERS: ATTEND Family Medicine
DX: R07.9 Chest pain, unspecified (principal)
CPT/HCPCS: 93017; 78452; A9500; J2785

== ENCOUNTER → 2020-11-02 | Outpatient (CLI) | payer MEDICARE ==
--- NOTE | 2020-11-02 11:20 | US ---
EXAMINATION TYPE: US carotid duplex BILAT DATE OF EXAM: 11/02/2020 COMPARISON: NONE CLINICAL HISTORY: R42 vertigo. Vertigo. EXAM MEASUREMENTS: RIGHT: Peak Systolic Velocity (PSV) cm/sec ----- Right CCA: 76.2 ----- Right ICA: 102.6 ----- Right ECA: 78.7 ICA/CCA ratio: 1.3 RIGHT: End Diastole cm/sec ----- Right CCA: 20.1 ----- Right ICA: 36.6 ----- Right ECA: 5.1 LEFT: Peak Systolic Velocity (PSV) cm/sec ----- Left CCA: 82.0 ----- Left ICA: 137.1 ----- Left ECA: 74.3 ICA/CCA ratio: 1.7 LEFT: End Diastole cm/sec ----- Left CCA: 18.2 ----- Left ICA: 44.5 ----- Left ECA: 12.8 VERTEBRALS (direction of flow): Right Vertebral: Antegrade Left Vertebral: Antegrade Rhythm: Normal Left ICA appears very tortuous- difficult to follow distally. Elevated velocity within left ICA. IMPRESSION: No evidence for hemodynamically significant stenosis. NASCET criteria was used in interpretation of this exam? Criteria for Assigning % of Stenosis / Diameter reduction (Estimation based on the indirect measurements of the internal carotid artery velocities (ICA PSV). 1. Normal (no stenosis)=ICA PSV < 125 cm/s: ratio < 2.0: ICA EDV<40 cm/s. 2. Less than 50% stenosis=ICA PSV < 125 cm/s: ratio < 2.0: ICA EDV<40 cm/s. 3. 50 to 69% stenosis=ICA PSV of 125 to 230 cm/s: ration 2.0 ? 4.0: ICA EDV 40-100 cm/s. 4. Greater than 70% stenosis to near occlusion= ICA PSV > 230 cm/s: ratio > 4.0: ICA EDV > 100 cm/s. 5. Near occlusion= ICA PSV velocities may be low or undetectable: variable ratio and ICA EDV. 6. Total occlusion=unable to detect flow.
== END | disposition home or self-care (01) ==
LOC: RADUSWWP 10:47
PROVIDERS: ATTEND Family Medicine
DX: R42 Dizziness and giddiness (principal)
CPT/HCPCS: 93880

== ENCOUNTER → 2021-06-18 | Outpatient (CLI) | payer MEDICARE ==
--- NOTE | 2021-06-18 16:11 | BD ---
EXAMINATION TYPE: Axial Bone Density DATE OF EXAM: 06/18/2021 COMPARISON: Prior DEXA bone scan 2019 CLINICAL HISTORY: 76 years year old Female. ICD-10 CODE: M81.0 known osteoporosis Height: 5 FT 2 1/2 IN Weight: 142 FRAX RISK QUESTIONS: Alcohol (3 or more units per day): NO Family History (Parent hip fracture): NO Glucocorticoids (More than 3mos): NO (Ex: prednisone, prednisolone, methylprednisolone, dexamethasone, and hydrocortisone). History of Fracture in Adulthood: YES Secondary Osteoporosis: 1. Type 1 Diabetes: NO 2. Hyperthyroidism: NO 3. Menopause before 45: NO 4. Malnutrition: NO 5. Chronic liver disease: HEP C Rheumatoid Arthritis: NO Current Tobacco Use: NO RISK FACTORS HISTORY OF: History of Wrist Fracture: RT WRIST When: 2009 Surgery to Spine/Hip(right/left)/Wrist (right/left): NONE Family History of Osteoporosis: UNKNOWN Active: YES Diet low in dairy products/other sources of calcium: NO Postmenopausal woman: YES Take estrogen and/or progesterone medications: NONE Lost more than 2 inches in height since high school: YES Frequent falls: YES Poor Health: GOOD Hyperparathyroidism: NO Adrenal Insufficiency: NO MEDICATIONS: Thyroid Medications: YES Which medication: LEVOTHYROXINE How Long: APPROX 20 YEARS Additional Medications: LEVOTHYROXINE, HYDROCHLOROTHIAZIDE, CALCIUM, IRON, VIT D, REFLUX MEDS, Additional History: GASTRIC BYPASS 2006,RECENT FALL POSSIBLE RIB FX PT STATES ON PROLIA EXAM MEASUREMENTS: Bone mineral densitometry was performed using the [employer] System. Bone mineral density as measured about the Lumbar spine is: ----- L1-L4(G/cm2): 0.780 T Score Values are as follows: ----- L1: -3.4 ----- L2: -3.7 ----- L3: -3.4 ----- L4: -3.0 ----- L1-L4: -3.3 Bone mineral density has: INCREASED 1.8 % since study of: 2019 Bone mineral density about the R hip (g/cm2): 0.703 Bone mineral density about the L hip (g/cm2): 0.724 T Score values are as follows: -----R Neck: -2.4 -----L Neck: -2.3 -----R Total: -2.4 -----L Total: -2.3 Bone mineral density has: INCREASED 2.2 % since study of: 2020 FRAX%s: The graph provided illustrates a 26.1 % chance for a major osteoporotic fx and a 8.2 % chance for the hips probability for fx in 10 years time. IMPRESSION: Osteoporosis (T Score less than -2.5). There is increased fracture risk and therapy is usually indicated based on age. Re-Screen 1-2 years. NOTE: T-SCORE=SD OF THE YOUNG ADULT MEAN.
== END | disposition home or self-care (01) ==
LOC: RADBDWWP 13:15
PROVIDERS: ATTEND Family Medicine
DX: M81.0 Age-related osteoporosis without current pathological fracture (principal)
CPT/HCPCS: 77080

== ENCOUNTER → 2023-04-13 | Outpatient (CLI) | payer MEDICARE ==
--- NOTE | 2023-04-16 14:45 | MR ---
EXAMINATION TYPE: MR iac wo/w con DATE OF EXAM: 04/13/2023 COMPARISON: NONE HISTORY: 78-year-old female H91.90 UNSPECIFIED HEARING LOSS, UNSPECIFIED EAR, multiple ear infections back to back, residual right sided fullness, some dizziness TECHNIQUE: Multiplanar, multisequence images of the brain and brainstem were acquired before and aft er administration of 6 mL IV Gadavist. Diffusion weighted imaging was performed. Additional coned-d own sequences through the internal auditory canals and posterior cranial fossa before and after IV co ntrast administration. FINDINGS: Diffusion weighted images demonstrate no evidence of an acute ischemic lesion in the brain. T2/FLAIR weighted sequences show moderate scattered bright white matter change throughout the subcort ical, deep white matter, and periventricular regions of both cerebral hemispheres. Midline structures demonstrate partially empty sella but otherwise normal morphology. The craniocerv ical junction is normal. There is mild age-related cerebral cortical volume loss. The ventricles are of normal caliber. There is no evidence of an acute intracranial hemorrhage, infarct, mass, mass-effect or an extra-axia l fluid collection. There is no cerebellopontine angle mass. The internal auditory canals are symmetric. Brainstem and skull base abnormalities are not seen. Post contrast images demonstrate no evidence of pathologic enhancement in the posterior cranial rere a or the internal auditory canals. There is no abnormal enhancement of the labyrinths. There is some scattered bright T2 signal along the right mastoid air cells. No appreciable fluid in t he region of the middle ear cavities. There is moderate to severe mucosal thickening throughout the ethmoid air cells and mild within the r ight maxillary sinus. Globes are intact. IMPRESSION: 1. Moderate patchy burden of chronic small vessel ischemic disease. No acute intracranial abnormality seen. 2. Scattered bright T2 signal within the right mastoid air cells. If pain or fullness localizes here, consider mastoiditis. 3. Otherwise, no additional specific abnormality on acoustic MRI. 4. Moderate to severe chronic ethmoid sinus disease and mild within the right maxillary sinus.
== END | disposition home or self-care (01) ==
LOC: RADMRIMAIN 11:05
PROVIDERS: ATTEND Otolaryngology
DX: I67.82 Cerebral ischemia (principal); H74.8X1 Other specified disorders of right middle ear and mastoid; J34.89 Other specified disorders of nose and nasal sinuses; H91.91 Unspecified hearing loss, right ear; R42 Dizziness and giddiness
CPT/HCPCS: 70553; A9585

== ENCOUNTER → 2023-06-20 | Outpatient (CLI) | payer MEDICARE ==
--- NOTE | 2023-06-20 15:54 | BD ---
EXAMINATION TYPE: Axial Bone Density DATE OF EXAM: 06/20/2023 CLINICAL HISTORY: 78 years old Female. ICD-10 CODE: M81.0 AGE RELATED OSTEOPOROSIS Height: 63in Weight: 137lb FRAX RISK QUESTIONS: History of Fracture in Adulthood: yes Secondary Osteoporosis: 3 5. Chronic liver disease: hep c Rheumatoid Arthritis: yes RISK FACTORS HISTORY OF: History of Wrist Fracture: right wrist When: 2009 MEDICATIONS: Thyroid Medications: Which medication: Levothyroxine How Lon years Osteoporosis Medications: Which medication: pt unsure of which med, pt states she receives infusion once a year How Long: EXAM MEASUREMENTS: Bone mineral densitometry was performed using the [employer] System. Bone mineral density as measured about the Lumbar spine is: ----- L1-L4(G/cm2): 0.789 T Score Values are as follows: ----- L1: -3.3 ----- L2: -3.7 ----- L3: -3.3 ----- L4: -3.0 ----- L1-L4: -3.3 Z Score Values are as follows: ----- L1: -1.4 ----- L2: -1.8 ----- L3: -1.4 ----- L4: -1.0 ----- L1-L4: -1.3 Bone mineral density has: Increased 1.2% since study of: 06-18-21 Bone mineral density about the R hip (g/cm2): 0.717 Bone mineral density about the L hip (g/cm2): 0.707 T Score values are as follows: -----R Neck: -2.5 -----L Neck: -2.5 -----R Total: -2.3 -----L Total: -2.4 Z Score values are as follows: -----R Neck: -0.2 -----L Neck: -0.3 -----R Total: -0.2 -----L Total: -0.3 Bone mineral density has: unchanged 0% since study of: 06-18-21 FRAX%s: The graph provided illustrates a 34.7% chance for a major osteoporotic fx and a 12.8% chance for the hips probability for fx in 10 years time. IMPRESSION: Osteoporosis (T Score less than -2.5). There is increased fracture risk and therapy is usually indicated based on age. Re-Screen 1-2 years. NOTE: T-SCORE=SD OF THE YOUNG ADULT MEAN.
== END | disposition home or self-care (01) ==
LOC: RADBDWWP 13:01
PROVIDERS: ATTEND Family Medicine
DX: M81.0 Age-related osteoporosis without current pathological fracture (principal)
CPT/HCPCS: 77080

== ENCOUNTER → 2023-11-27 | Outpatient (CLI) | payer MEDICARE ==
[2023-11-27 10:20] LABS: Ionized Calcium 4.7 mg/dL (4.5-5.3)
[2023-11-27 15:57] LABS: Basophils # (A) 0.03 X 10*3/uL (0.00-0.10); Basophils % (A) 0.6 %; Eosinophils # (A) 0.16 X 10*3/uL (0.04-0.35); Eosinophils % (A) 3.5 %; HCT 37.6 % (37.2-46.3); HGB 12.1 g/dL (12.0-15.0); Lymphocytes # (A) 1.69 X 10*3/uL (0.90-5.00); Lymphocytes % (A) 36.5 %; MCH 29.7 pg (27.0-32.0); MCHC 32.2 g/dL (32.0-37.0); MCV 92.2 FL (80.0-97.0); Mean Platelet Volume 12.2 FL (9.5-12.2); Monocytes # (A) 0.42 X 10*3/uL (0.20-1.00); Monocytes % (A) 9.1 %; NRBC Per 100 WBC 0 X 10*3/uL (0.00-0.01); Neutrophils # (A) 2.32 X 10*3/uL (1.80-7.70); Neutrophils % (A) 50.1 %; Platelet Count 160 X 10*3/uL (140-440); RBC 4.08 X 10*6/uL (4.10-5.20); RDW 12.2 % (11.5-14.5); WBC 4.63 X 10*3/uL (4.50-10.00)
[2023-11-27 16:20] LABS: % Iron Saturation 15.83 (12.00-45.00); ALT 21 U/L (8-44); AST 24 U/L (13-35); Albumin 4.1 g/dL (3.8-4.9); Albumin/Globulin Ratio 1.95 Ratio (1.60-3.17); Alkaline Phosphatase 116 U/L (41-126); BUN/Creat Ratio 19.86 Ratio (12.00-20.00); Blood Urea Nitrogen 13.9 mg/dL (9.0-27.0); C Reactive Protein <0.30 mg/dL (0.00-0.80); Calcium 8.4 mg/dL (8.7-10.3); Carbon Dioxide 22.2 mmol/L (21.6-31.8); Chloride 109 mmol/L (96-109); Chol/HDL Ratio 2.18 Ratio; Ferritin 28.8 ng/mL (10.0-291.0); Globulin 2.1 g/dL (1.6-3.3); Glucose 86 mg/dL (70-110); Iron 57 UG/DL (50-170); LDL Cholesterol,Calculated 31.8 mg/dL (0.0-131.0); Potassium 4.4 mmol/L (3.5-5.5); Sodium 141 mmol/L (135-145); T4, Free (Free Thyroxine) 1.07 ng/dL (0.80-1.80); Total Bilirubin 0.3 mg/dL (0.3-1.2); Total Iron Binding Capacity 360 UG/DL (228-460); Total Protein 6.2 g/dL (6.2-8.2)
[2023-11-27 17:09] LABS: Erythrocyte Sedimentation Rate 5 mm/Hr (0-30)
[2023-11-29 12:34] LABS: Vitamin A 24 ug/dL (38-106)
[2023-11-30 12:09] LABS: Vit B1(Thiamine) 50 ug/L (38-122)
== END | disposition home or self-care (01) ==
LOC: LABWHC1 09:28
PROVIDERS: ATTEND Family Medicine
DX: Z00.01 Encounter for general adult medical examination with abnormal findings (principal); G47.00 Insomnia, unspecified; E78.5 Hyperlipidemia, unspecified; E03.9 Hypothyroidism, unspecified; E50 Vitamin A deficiency; E63.9 Nutritional deficiency, unspecified
CPT/HCPCS: 36415; 80053; 80061; 82306; 82330; 82607; 82728; 83540; 83550; 84425; 84439; 84443; 84480; 84590; 85025; 85652; 86140